=== PATIENT | female | born 1935 | race Caucasian/White ===

== ENCOUNTER 2016-11-29 08:59 | Inpatient (IN) | payer OTHER ==
[~2016-11-29] VITALS: Ht 167.6 cm; Wt 66.2 kg
[~2016-11-29 08:59] MED LIST: ARTIFICIAL TEAR15 M1 BOTH EYES; CALCIUM 600 +1 EAC1 PO; CARDIZEM CD,CA180 MG PO; CO Q-10100 MG PO; CYANOCOBALAM1000 MCG PO; DIGOXIN125 MCG PO; ELIQUIS5 MG PO; EVENING PRIMRO1 EACH PO; FLONASE16 G1 BOTH NARES; GLUCOSAMINE-CH1 EAC2 PO; GLUCOSAMINE1000 MG PO; HIGH POTENCY C600 MG PO; HYDROCHLOROTHIA25 MG PO; IRON325 M1 PO; KLOR-CON M1515 MEQ PO; LASIX20 MG PO; LISINOPRIL10 MG PO; LOTREL 5/201 CAPSULE PO; MAGNESIUM100 MG PO; METAMUCIL POWD798 GM PO; METOPROLOL TART25 MG PO; MIRALAX17 GM PO; MOBIC7.5 MG PO; OMEGA 3 1,0001 EACH PO; OMEGA-3 + VITA1 EAC2 PO; ONE DAILY MULT1 EAC1 PO; OSTEO BI-FLEX1 EAC1 PO; OXYCODONE HCL5 MG PO; PRILOSEC20 MG PO; PROZAC10 MG PO; PROZAC20 MG PO; RESTASIS 01 DROP/0.4 BOTH EYES; SUPER OMEGA-31000 MG PO; SYNTHROID88 MCG PO; SYSTANE BALANCE10 ML LEFT EYE; TOPROL XL25 MG PO; TYLENOL EXTRA500 MG PO; VAGIFEM10 MCG VG; VITAMIN D2000 INTUN PO; VITAMIN D32000 UNI1 PO; XARELTO10 MG PO; ZOFRAN ODT4 MG PO
[2016-11-29 12:18] VITALS: BP 137/93
[2016-11-29 18:15] VITALS: BP 144/73
[2016-11-29 20:00] VITALS: BP 133/75
[2016-11-29 23:59] VITALS: BP 121/78
[2016-11-30 04:03] VITALS: BP 103/61
[2016-11-30 07:20] LABS: HEMATOCRIT 33.4 % (36.0-46.0); MCV 101.2 FL (83-99)
[2016-11-30 07:40] LABS: ANION GAP 8 MEQ/L (2-14); CHLORIDE 104 MEQ/L (99-109); GFR ESTIMATE (CALCULATED) > 59 mL/min/; GLUCOSE 109 mg/dL (70-99); POTASSIUM 3.6 MEQ/L (3.7-5.4); SAMPLE HEMOLYSIS CHECK 0; SAMPLE ICTERIC CHECK 0; SAMPLE LIPEMIA CHECK 0; SODIUM 140 MEQ/L (136-147); UREA NITROGEN (BUN) 15 mg/dL (9-23)
[2016-11-30 08:07] VITALS: BP 118/74
[2016-11-30 11:59] VITALS: BP 97/56
[2016-11-30 16:00] VITALS: BP 124/70
[2016-11-30 20:18] VITALS: BP 129/70
[2016-11-30 23:54] VITALS: BP 111/66
[2016-12-01 07:31] LABS: HEMATOCRIT 32.5 % (36.0-46.0); MCV 100.6 FL (83-99)
[2016-12-01 07:57] VITALS: BP 127/71
[2016-12-01] MEDS ORDERED: HYDROCODON-ACE1 EAC7 PO (07:58)
[2016-12-01 08:03] LABS: ANION GAP 8 MEQ/L (2-14); CHLORIDE 104 MEQ/L (99-109); GFR ESTIMATE (CALCULATED) > 59 mL/min/; GLUCOSE 119 mg/dL (70-99); SAMPLE HEMOLYSIS CHECK 0; SAMPLE ICTERIC CHECK 0; SAMPLE LIPEMIA CHECK 0; SODIUM 138 MEQ/L (136-147); UREA NITROGEN (BUN) 17 mg/dL (9-23)
== END 2016-12-01 15:00 | DRG 470 ==
LOC: 2SOUTH 08:59 → 3EAST 17:55
PROVIDERS: Orthopaedic Surgery; Physician Assistant
PROC: 0SRD0J9 Replacement of Left Knee Joint with Synthetic Substitute, Cemented, Open Approach (ICD-10-PCS; principal; 2016-11-29)
DX: M17.12 Unilateral primary osteoarthritis, left knee (principal); I50.30 Unspecified diastolic (congestive) heart failure; G47.33 Obstructive sleep apnea (adult) (pediatric); I48.91 Unspecified atrial fibrillation; I08.1 Rheumatic disorders of both mitral and tricuspid valves; K58.9 Irritable bowel syndrome, unspecified; E03.9 Hypothyroidism, unspecified; K21.0 Gastro-esophageal reflux disease with esophagitis; H91.90 Unspecified hearing loss, unspecified ear; J30.1 Allergic rhinitis due to pollen; F43.23 Adjustment disorder with mixed anxiety and depressed mood; I11.0 Hypertensive heart disease with heart failure; I27.2 Other secondary pulmonary hypertension
CPT/HCPCS: 80048; 80162; 85014; 85018; 93005; 94799; C1713; J0131; J0690; J1885; J2250; J2795; J3010; J7050; L1820

== ENCOUNTER 2017-01-23 13:55 | Emergency (ER) | payer OTHER ==
[~2017-01-23] VITALS: Ht 162.6 cm; Wt 66.3 kg
[~2017-01-23 13:55] MED LIST changes: +HYDROCODON-ACE1 EAC7 PO
[2017-01-23] MEDS ORDERED: ULTRACET1 TABLET PO (16:48)
[2017-01-23 17:40] VITALS: BP 163/83
== END 2017-01-23 17:40 | disposition home or self-care (01) ==
LOC: EME 13:55
PROC: 3E0234Z Introduction of Serum, Toxoid and Vaccine into Muscle, Percutaneous Approach (ICD-10-PCS; principal; 2017-01-23)
PROC: 2W3DX1Z Immobilization of Left Lower Arm using Splint (ICD-10-PCS; 2017-01-23)
DX: S52.502A Unspecified fracture of the lower end of left radius, initial encounter for closed fracture (principal); S80.212A Abrasion, left knee, initial encounter; S00.81XA Abrasion of other part of head, initial encounter; W01.10XA Fall on same level from slipping, tripping and stumbling with subsequent striking against unspecified object, initial encounter; I50.9 Heart failure, unspecified; Z87.891 Personal history of nicotine dependence
CPT/HCPCS: 70450; 70486; 73110; 73130; 73564; 99281; 99283

== ENCOUNTER 2017-06-07 14:33 | Emergency (ER) | payer OTHER ==
[~2017-06-07] VITALS: Ht 167.6 cm; Wt 67.6 kg
[~2017-06-07 14:33] MED LIST changes: +ULTRACET1 TABLET PO
[2017-06-07 16:41] LABS: HEMATOCRIT 43.5 % (36.0-46.0); MCH 33.6 PG (29.0-34.0); MCHC 33.1 G/DL (30.0-36.0); MCV 101.4 FL (83-99); MEAN PLAT.VOLUME 9.7 uM^3 (9.5-12.4); PLATELET COUNT 219 K/uL (156-360); RBC DIS.WIDTH-CV 13.8 % (11.8-14.6); RBC DIS.WIDTH-SD 51.7 % (39-53); RED BLOOD COUNT 4.29 M/uL (3.80-5.20); WHITE BLOOD COUNT 5.9 K/uL (4.1-10.2)
[2017-06-07 16:47] LABS: CHLORIDE 103 mEq/L (99-109); POTASSIUM 4.4 mEq/L (3.7-5.4); SODIUM 139 mEq/L (136-147)
[2017-06-07 16:49] LABS: GLUCOSE 92 mg/dL (70-99)
[2017-06-07 16:50] LABS: ANION GAP 10 MEQ/L (2-14)
[2017-06-07 16:53] LABS: GFR ESTIMATE (CALCULATED) > 59 mL/min/; UREA NITROGEN (BUN) 17 mg/dL (9-23)
[2017-06-07 16:58] LABS: TROP-I INTERPRETATION NEGATIVE; TROPONIN-I 0.02 ng/mL (0.0-0.30)
[2017-06-07 17:43] VITALS: BP 157/96
== END 2017-06-07 17:43 | disposition home or self-care (01) ==
LOC: EME 14:33
PROVIDERS: Nurse Practitioner Family
DX: R00.1 Bradycardia, unspecified (principal); I50.9 Heart failure, unspecified; Z85.828 Personal history of other malignant neoplasm of skin; Z87.891 Personal history of nicotine dependence; Z88.0 Allergy status to penicillin; Z88.1 Allergy status to other antibiotic agents
CPT/HCPCS: 71020; 80048; 80162; 84484; 85027; 93005; 99281; 99283